=== PATIENT | male | born 1995 | race African-American/Black ===

== ENCOUNTER 2019-04-15 11:31 | Emergency (ER) | payer OTHER ==
[~2019-04-15] VITALS: Ht 180.3 cm; Wt 49.9 kg
[2019-04-15 11:35] VITALS: Ht 180.3 cm; Wt 49.9 kg
[2019-04-15 12:40] LABS: RED CELL DISTRIBUTION WIDTH 13.5 % (11.5-14.5)
[2019-04-15 12:47] LABS: BASOPHIL % 0.2 % (0-2); PLATELET COUNT 178 x10^3mcL (130-400)
[2019-04-15 12:50] LABS: CALCIUM 9.9 mg/dL (8.5-10.1); CARBON DIOXIDE 23.7 mmol/L (21-32); CHLORIDE SERUM 102 mmol/L (98-107); GFR1 > 60 mL/min; GLUCOSE SERUM 105 mg/dL (74-106); SODIUM SERUM 140 mmol/L (136-145)
[2019-04-15 13:02] LABS: ALBUMIN 4.7 g/dL (3.4-5.0); ALKALINE PHOSPHATASE 72 U/L (46-116); ALT/SGPT 20 U/L (16-63); AST/SGOT 24 U/L (15-37); BILIRUBIN TOTAL 0.9 mg/dL (0.20-1.00); HDL CHOLESTEROL 45 mg/dL (40-60); LIPASE 91 IU/L (73-393); MAGNESIUM 2.2 mg/dL (1.8-2.4); T4(THYROXINE) 8.3 ug/dL (4.7-13.3)
[2019-04-15 13:03] LABS: CHOLESTEROL 117 mg/dL (<200); TOTAL PROTEIN, SERUM 8.8 g/dL (6.4-8.2)
[2019-04-15 13:33] LABS: microscopic required? NO
[2019-04-15 13:38] LABS: urine erythrocyte NEGATIVE (NEGATIVE)
[2019-04-15 13:57] LABS: AMPHETAMINE QUAL UR NONE DETECTED (See below)
[2019-04-15 16:21] VITALS: BP 144/99
== END 2019-04-15 16:22 | disposition home or self-care (01) ==
LOC: ED 11:31
PROVIDERS: Emergency Medicine
DX: G93.41 Metabolic encephalopathy (principal); F31.9 Bipolar disorder, unspecified; F17.210 Nicotine dependence, cigarettes, uncomplicated; Z91.013 Allergy to seafood
CPT/HCPCS: 82962; 83880; 99406; G0480; J7030; Q0092